=== PATIENT | male | born 1950 | race Caucasian/White ===

== ENCOUNTER 2018-10-22 08:23 | Day surgery (SDC) | payer MEDICARE ==
[2018-10-21 10:37] VITALS: BMI 45.0
--- NOTE | 2018-10-22 19:12 | OP ---
DATE OF PROCEDURE: 10/22/2018 PROCEDURE: Colon cancer screening. PREPROCEDURE DIAGNOSES: 1. Recent diagnosis of prostate cancer doctor's request to repeat colonoscopy. 2. Family history of colon polyps. 3. Previous colonoscopy on 06/04/2014, normal. POSTPROCEDURE DIAGNOSES: 1. Poor prep in the cecum with retained stool and vegetable matter, could not fully remove. 2. Otherwise, normal colonoscopy. RECOMMENDATIONS: Repeat colonoscopy in 5 years. ANESTHESIA: TIVA. DESCRIPTION OF PROCEDURE: The patient was informed of the risks, benefits, and possible complications of the endoscopy including perforation . Informed consent was obtained. The patient was brought to the endoscopy suite, where he was sedated in the gradual fashion. Once he was comfortable, a rectal exam was performed, which was normal. No prostate masses could be felt. Then, the scope was advanced through the anal canal to the colon and the cecum. The cecum was identified by ileocecal valve and appendiceal orifice. Retroflexed views were normal. The scope was removed. The patient tolerated the procedure well. There were no complications. Job ID: [id number]
== END 2018-10-22 12:08 | disposition home or self-care (01) ==
LOC: SDC 08:23
PROVIDERS: ATTEND Internal Medicine Gastroenterology
PROC: 0DJD8ZZ Inspection of Lower Intestinal Tract, Via Natural or Artificial Opening Endoscopic (ICD-10-PCS; principal; 2018-10-22)
DX: Z12.11 Encounter for screening for malignant neoplasm of colon (principal); C61 Malignant neoplasm of prostate; Z79.51 Long term (current) use of inhaled steroids; Z83.71 Family history of colonic polyps; Z79.899 Other long term (current) drug therapy